=== PATIENT | male | born 1995 | race Caucasian/White ===

== ENCOUNTER 2017-01-13 22:52 | Emergency (ER) | payer MEDICAID, OTHER ==
[~2017-01-13] VITALS: Ht 177.8 cm; Wt 85.5 kg
[~2017-01-13 22:52] MED LIST: ACET500T98 PO; ALBU8.5H3 INH; D-ME473S2 PO; GUAI120S26 PO; IBUP800T25 PO; LORA-186 PO
[2017-01-13 22:56] VITALS: Ht 177.8 cm; Wt 85.5 kg
[2017-01-13] MEDS ORDERED: IBUPROFEN 800 MG TAB PO ONE (23:30)
[2017-01-13] MEDS ORDERED: IBUP800T25 PO (23:41)
--- NOTE | 2017-01-14 00:01 | ERD ---
ER Documentation Chief Complaint Date/Time DATE: 01/13/17 TIME: 23:43 Chief Complaint left lower leg numbness x 3 days HPI 21-year-old male complaining of lateral aspect of the left lower leg numbness and tingling 3 days. Patient works at a warehouse. States that he was squatting a lot at work 3 days ago, his left leg was very sore after that. The numbness and tingling started shortly after, has gotten worse in the last day. He is having trouble walking, and feeling like he is unbalanced. Denies falls or any other injuries. Denies fever or chills. Denies calf pain or swelling. ROS All systems reviewed and are negative except as per history of present illness. Medications Home Meds Active Scripts Ibuprofen* (Motrin*) 800 Mg Tab, 800 MG PO Q8, #30 TAB Prov:MAURILIO PAINTER NP 01/13/17 Albuterol Sulfate* (Proair HFA*) 8.5 Gm Hfa.aer.ad, 2 PUFF INH Q4, #1 INHALER Prov:ROSSY GONZALEZ PA-C 03/10/16 Ibuprofen* (Motrin*) 800 Mg Tab, 800 MG PO Q6, #30 TAB take with food Prov:ROSSY GONZALEZ PA-C 03/10/16 Vejdoedsxmm-L-Dhnlwwgprm Hb* (Guaifenesin* DM Syrup) 120 Ml Syrup, 10 ML PO Q4H Y for COUGH, #120 ML Prov:ROSSY GONZALEZ PA-C 03/10/16 Acetaminophen (Tylenol) 500 Mg Tab, 500 MG PO Q4 for PAIN AND OR ELEVATED TEMP, #30 TAB Prov:JAMES MANNING NP 01/09/15 Loratadine* (Claritin*) 10 Mg Tablet, 10 MG PO DAILY, #30 TAB Prov:JAMES MANNING NP 01/09/15 Dextromethorphan Hb-Promethazine Hcl* (Promethazine DM* Syrup) 473 Ml Syrup, 5 ML PO Q6 Y for COUGH, #1 BOTTLE Prov:JAMES MANNING NP 01/09/15 Reported Medications [None] No Conflict Check 10/26/09 Allergies Allergies: Coded Allergies: No Known Allergy (Verified Allergy, Mild, 10/26/09) PMhx/Soc Medical and Surgical Hx: pt denies Medical Hx History of Surgery: No Hx Neurological Disorder: No Hx Respiratory Disorders: No Hx Cardiac Disorders: No Hx Miscellaneous Medical Probl: No Hx Alcohol Use: No Hx Substance Use: Yes (marijuana) Hx Tobacco Use: No Physical Exam Vitals Vital Signs Date Time Temp Pulse Resp B/P Pulse Ox O2 Delivery O2 Flow Rate FiO2 01/13/17 22:56 97.8 100 20 143/65 98 Physical Exam General: Well-developed, well-nourished, conscious and coherent, in no distress Skin: Warm and dry without rash, good texture and turgor Head: Normocephalic without evidence of trauma Eyes: Sclera and conjunctivae normal; pupils equal, round, and reactive to light; extraocular movements are intact Chest: Normal AP diameter. Good expansion without retractions. Nontender. Lungs are clear to auscultate bilaterally with good tidal volume Heart: Regular rate and rhythm. No murmur, rub, or gallops heard Back: Without spinal or CVA tenderness Extremities: Left foot in the neutral position, and able to dorsiflex, otherwise full range of motion of the left lower extremity. Normal active leg raise against resistance. Decreased sensation on the lateral aspect of the left leg below the knee. Neuro: Alert and oriented 4, GCS 15. Cranial nerves grossly intact. Motor and sensory exams nonfocal. Moves all extremities. Speech clear. Walking with steppage gait Results 24 hrs Current Medications Medications (Trade) Dose Ordered Sig/Jalen Route PRN Reason Start Time Stop Time Status Last Admin Dose Admin Ibuprofen (Motrin) 800 mg ONCE ONCE PO 01/13/17 23:30 01/13/17 23:32 DC 01/13/17 23:35 Procedures/MDM 21-year-old male present ED was neuropathy on his lateral aspect of left lower leg. Patient history exam findings are consistent with peroneal nerve palsy, likely secondary to prolonged squatting at work. Low suspicion for stroke, Guillain-Bond syndrome, brain or spinal cord tumor, Lyme disease, hypocalcemia , vitamin D deficiency, or heavy metal poisoning. Patient given crutches to assist ambulation. Patient advised to avoid squatting at work, and elevate his affected leg when resting. Patient also given referral to community clinics for follow-up. Advised patient to request for physical therapy referral. Patient appears well, stable for discharge and outpatient management. Medical decision making shared with patient and family. Education provided to patient and family. Patient and family expressed understanding of the plan. Medications on discharge: Ibuprofen. Follow-up: Primary care provider in 2-3 days or return to ED if worse. The case was reviewed and discussed with Dr. Mcgrath, who agrees with the plan of care including labs, treatment, and advanced imaging as appropriate. Disclaimer: Inadvertent spelling and grammatical errors are likely due to EHR/ dictation software use and do not reflect on the overall quality of patient care. Also, please note that the electronic time recorded on this note does not necessarily reflect the actual time of the patient encounter. Departure Diagnosis: Primary Impression: Left peroneal nerve palsy Condition: Stable Patient Instructions: Neuropathy, Peripheral Referrals: [facility] YOU HAVE RECEIVED A MEDICAL SCREENING EXAM AND THE RESULTS INDICATE THAT YOU DO NOT HAVE A CONDITION THAT REQUIRES URGENT TREATMENT IN THE EMERGENCY DEPARTMENT. FURTHER EVALUATION AND TREATMENT OF YOUR CONDITION CAN WAIT UNTIL YOU ARE SEEN IN YOUR DOCTORS OFFICE WITHIN THE NEXT 1-2 DAYS. IT IS YOUR RESPONSIBILITY TO MAKE AN APPOINTMENT FOR FOLOW-UP CARE. IF YOU HAVE A PRIMARY DOCTOR --you should call your primary doctor and schedule an appointment IF YOU DO NOT HAVE A PRIMARY DOCTOR YOU CAN CALL OUR PHYSICIAN REFERRAL HOTLINE AT IF YOU CAN NOT AFFORD TO SEE A PHYSICIAN YOU CAN CHOSE FROM THE FOLLOWING [facility] CLINICS [facility] [address] [facility]. [facility] [address] [facility] [facility] [address] [facility] [facility] [address] [facility]. [facility] [address] [facility]. [facility]. [address] Additional Instructions: Call your primary care doctor TOMORROW for an appointment during the next 2-3 days.See the doctor sooner or return here if your condition worsens before your appointment time. Ask for referral to physical therapy. MAURILIO PAINTER NP Jan 14, 2017 00:00
== END 2017-01-14 00:09 | disposition home or self-care (01) ==
LOC: FTE 22:52
DX: G57.32 Lesion of lateral popliteal nerve, left lower limb (principal)
CPT/HCPCS: Z7502; Z7610; 99283

== ENCOUNTER 2017-02-23 14:09 | Emergency (ER) | payer SELFPAY ==
[~2017-02-23] VITALS: Ht 185.4 cm; Wt 82.5 kg
[2017-02-23 14:21] VITALS: Ht 185.4 cm; Wt 82.5 kg
== END 2017-02-24 00:17 | disposition left against medical advice (07) ==
LOC: FTE 14:09
DX: Z53.21 Procedure and treatment not carried out due to patient leaving prior to being seen by health care provider (principal)